=== PATIENT | female | born 1955 | race Caucasian/White ===

== ENCOUNTER 2019-04-28 09:21 | Emergency (ER) | payer OTHER, SELFPAY ==
[2019-04-28 09:28] VITALS: BP 196/93; PULSE 104; RESP 15; TEMP 37.3; O2SAT 100; BMI 43.8
--- NOTE | 2019-04-28 09:38 | ED.ALLEREA ---
HPI - Allergic Reaction General Chief complaint: Allergic Reaction Stated complaint: allergic reaction to wasp sting 30 mins ago Time Seen by Provider: 04/28/19 09:31 Source: patient Mode of arrival: ambulatory Limitations: no limitations History of Present Illness HPI narrative: 64-year-old female comes to the emergency department with complaint of allergic reaction. Patient states she was stung by a wasp this morning. She had immediately swelling of her right arm and elbow region. As well as some rashing under her armpits and groin that was red. She states she took 2 doses of Benadryl or 50 mg total. This has helped the rash although she still very red and swollen over the elbow. She did have 2 or 3 episodes of vomiting. She does not think that she is having any tightening of her airway but feels kind of gone starks from the vomit. She states maybe her airway feels labored but she does not feel short of breath. She does not feel wheezy. She has not had anymore vomiting. She is a insulin-dependent diabetic and did take her insulin this morning. She did drink a soda but has not had any more solid food. Patient has had a prior wasp sting in the past, she required Benadryl but no other interventions. Related Data Previous Rx's Medication Instructions Recorded epinephrine 0.3 mg IM Q15M PRN 1 Days #2 each 04/28/19 prednisone 20 mg PO DAILY #3 tab 04/28/19 Allergies Allergy/AdvReac Type Severity Reaction Status Date / Time erythromycin base Allergy Unknown Unverified 12/16/17 12:48 [ERYTHROMYCIN BASE] Penicillins [PENICILLINS] Allergy Unknown Unverified 12/16/17 12:48 Sulfa (Sulfonamide Allergy Unknown Unverified 12/16/17 12:48 Antibiotics) [SULFA (SULFONAMIDE ANTIBIOTICS)] Review of Systems Review of Systems ROS Unobtainable: All systems reviewed & are unremarkable except as noted in HPI and below Cardiovascular Denies chest pain, Denies edema and Denies dyspnea Respiratory Denies cough, Denies dyspnea, Denies stridor and Denies wheezing Gastrointestinal Gastrointestinal: Denies abdominal pain, Denies change in bowel habits, Denies diarrhea, Reports nausea and Reports vomiting Integumentary/Breasts Reports erythema and Reports skin swelling (hives) Allergic/Immunologic Denies wheezing [facility] Medical History (Updated 04/28/19 @ 09:42 by Kaur Enriquez DO) Diabetes (Chronic) Social History Smoking Status: Never smoker Exam Narrative Exam Narrative: GEN: Obese, well-appearing female, alert and oriented x 3, patient appears to be in no acute distress. HEENT: Atraumatic, pupils are equal round reactive to light, extraocular movements are intact, throat is clear without any exudates, erythema, tonsillar enlargement or uvular deviation HEART: Regular rate and rhythm without murmur, clicks, rubs. LUNGS:Lungs clear to auscultation, no wheezes, rales, crackles, chest moves symmetrically ABD:bowel sounds normal, soft, non-tender, no guarding, rebound, rigidity, no masses noted, no hepatosplenomegaly MSCL: Non-tender, no muscle atrophy, muscles strength 5/5 upper and lower extremities, full range of motion, normal gait NEURO:CN 2-12 intact, sensation normal SKIN: Patient has a large erythematous raised wheals that is about 6 x 8 cm over her distal arm on the extensor side. No other rashes or skin changes noted. Initial Vital Signs Initial Vital Signs: Vital Signs Temperature 99.1 F 04/28/19 09:28 Pulse Rate 104 H 04/28/19 09:28 Respiratory Rate 15 04/28/19 09:28 Blood Pressure 196/93 H 04/28/19 09:28 Pulse Oximetry 100 04/28/19 09:28 Course Orders Ordered: Discontinued Medications Methylprednisolone (Solu-Medrol 125 Mg Vial) 125 mg IV NOW ONE Stop: 04/28/19 09:39 Last Admin: 04/28/19 09:55 Dose: 125 mg Vital Signs - 8 hr 04/28/19 09:28 04/28/19 10:05 Temperature 99.1 F Pulse Rate 104 H 76 Respiratory Rate 15 13 Blood Pressure 196/93 H Blood Pressure [Right Arm] 155/78 H Pulse Oximetry 100 98 MDM - Allergic Reaction MDM Narrative Medical decision making narrative: Patient believes that she did keep the Benadryl down after vomiting. She does state that her symptoms other than the swelling her arm had improved afterwards. Plan to give a dose of Solu-Medrol but no changes consistent that would require epinephrine at this point. Patient states she actually seems to be improving. On recheck patient continued to improve. A little bit of a swelling with a little bit more distal but her arm has been hanging out at the bedside and improves improved and a more proximal area so I suspect some of this is her edema draining a little bit more distal secondary to gravity. We did lyssa the area so she can keep a close watch on it. Given prescription for prednisone but if she is well with just Benadryl she does not have to start also given a prescription for EpiPen as she could potentially have worsening reaction in the future with directions. Discharge Plan Departure Patient Disposition: Home Clinical Impression: Allergic reaction to insect sting Discharge Date/Time: 04/28/19 11:17 Interventions: ED Discharge Assessment Last Done: 04/28/19 11:15 Instructions: DI for General Allergic Reactions Activity Restrictions/Additional Instructions: Follow up in the next 2-3 days if your symptoms are not improving. Continue Benadryl 1-2 tablets every 6-8 hours as needed for symptoms. Take steroids once daily until gone. Return to the emergency department for fevers greater than 100.4, rapidly worsening redness, swelling, rashes that are spreading, new tightness of your throat, swelling of your lips mouth oropharynx, wheezing or stridor, persistent vomiting or other new or concerning symptoms. Prescriptions: New prednisone 20 mg tablet 20 mg PO DAILY Qty: 3 RF: 0 epinephrine 0.3 mg/0.3 mL auto-injector 0.3 mg IM Q15M PRN (Reason: anaphylaxis) 1 Days Qty: 2 RF: 0 Referrals: Abisai Robertson MD [Primary Care Provider] -
--- NOTE | 2019-04-28 09:50 | PC.NURSE ---
Attempts x3 for IV start. Unsuccessful
[2019-04-28] MEDS: methylPREDNISolone 125 MG/2 ML VIAL IV (09:55)
[2019-04-28 10:05] VITALS: BP 155/78; PULSE 76; RESP 13; O2SAT 98
[2019-04-28 11:15] VITALS: BP 153/82; PULSE 72; RESP 18; O2SAT 97
== END 2019-04-28 11:17 | disposition home or self-care (01) ==
PROVIDERS: Emergency Provider Emergency Medicine; PCP Family Medicine
DX: T63.461A Toxic effect of venom of wasps, accidental (unintentional), initial encounter (principal)
CPT/HCPCS: 96374; 99282; 99284; J2930

== ENCOUNTER → 2023-11-09 16:35 | Outpatient (CLI) | payer MEDICARE, OTHER, SELFPAY ==
--- NOTE | 2023-11-09 16:40 | DI.MG.S_ITS ---
BILATERAL DIGITAL SCREENING MAMMOGRAM 3D/2D WITH CAD: 11/09/2023 CLINICAL: Baseline exam. Routine screening. No prior exams were available for comparison. Both breasts are almost entirely fatty (category a/<25% glandular tissue). Current study was also evaluated with a Computer Aided Detection (CAD) system. No significant masses, calcifications, or other findings are seen in either breast. IMPRESSION: NEGATIVE There is no mammographic evidence of malignancy. A 1 year screening mammogram is recommended. Based on the Tyrer Cuzick model (a risk assessment model) the patient's lifetime risk is 5.1% and her 10 year risk is 2.5%. According to the ACR, ACS, and NCCN guidelines, an annual breast MRI exam along with mammogram is recommended if the patient's lifetime risk is 20% or greater. This exam was interpreted at Station ID: [id number]. NOTE: For mammograms, a report in lay terms will be sent to the patient. Approximately 15% of breast malignancies will not be visualized mammographically. In the management of a palpable breast mass, a negative mammogram must not discourage biopsy of a clinically suspicious lesion. Electronically Signed By: Arnold treadwell/enrique:11/10/2023 07:10:20 letter sent: Normal Exam ACR BI-RADS Category 1: Negative [id number]
== END ==
LOC: MAMMO 16:39
PROVIDERS: PCP Family Medicine; Referring Provider Family Medicine; Visit Provider Family Medicine
DX: Z12.31 Encounter for screening mammogram for malignant neoplasm of breast (principal)
CPT/HCPCS: 77063; 77067

== ENCOUNTER → 2023-12-21 12:46 | Outpatient (CLI) | payer MEDICARE, OTHER, SELFPAY ==
--- NOTE | 2023-12-21 12:47 | DI.RAD.S_ITS ---
PROCEDURE: XR DEXA AXIAL SKELETON INDICATIONS: MENOPAUSE COMPARISON: None. FINDINGS: Lumbar Spine: Bone mineral density 1.055 g/cm2, T score 0.1. Left Hip: Bone mineral density 0.990 g/cm2, T score 0.4. Left Femoral Neck: Bone mineral density 0.734 g/cm2, T score -1.0. Right Hip: Bone mineral density 0.921 g/cm2, T score -0.2. Right Femoral Neck: Bone mineral density 0.738 g/cm2, T score -1.0. Fracture Risk Calculation (when applicable): Not provided due to normal bone density. (T score greater or equal to -1.0 to: NORMAL) (T score from -1.1 to -2.4: OSTEOPENIA) (T score less than or equal to -2.5: OSTEOPOROSIS) IMPRESSION: Bone density is within normal limits. Dictated by: Jeremy Chavira M.D. on 12/21/2023 at 15:37 Approved by: Jeremy Chavira M.D. on 12/21/2023 at 15:38
== END ==
LOC: RAD 12:47
PROVIDERS: PCP Family Medicine; Referring Provider Family Medicine; Visit Provider Family Medicine
DX: Z78.0 Asymptomatic menopausal state (principal)
CPT/HCPCS: 77080

== ENCOUNTER → 2024-06-09 13:38 | Outpatient (CLI) | payer MEDICARE, OTHER, SELFPAY ==
--- NOTE | 2024-06-09 13:39 | DI.CT.S_ITS ---
PROCEDURE: CT IVP A/P W/WO INDICATIONS: 69 y/o F w/ h/o gross hematuria, please eval her upper tract TECHNIQUE: Optional 5 mm thick noncontrast images acquired from the diaphragm to the symphysis pubis. After the administration of intravenous contrast, 5 mm thick images acquired from the diaphragm to the symphysis pubis after a 10-minute delay. 2 mm thick coronal and sagittal reformats were then performed of the kidneys and ureters. For radiation dose reduction, the following was used: automated exposure control, adjustment of mA and/or kV according to patient size. COMPARISON: None. FINDINGS: Image quality: Diagnostic. Kidneys and Ureters: Both kidneys are normal in size, without hydronephrosis. 1-2 mm nonobstructing calculus at the interpolar region of the right kidney. No perinephric fat stranding. There is normal bilateral renal enhancement. Renal calyces appear normal in morphology when filled with contrast. Opacified portions of both ureters demonstrate normal caliber Bladder: Bladder wall thickness is normal. No calcified bladder stones. OTHER: Lower chest: Dense calcified nodule is seen at the right lung base consistent with a benign granuloma. Liver: No solid mass. 1.8 cm benign appearing cyst in the lateral left hepatic lobe. Gallbladder: Calcified gallstones are seen without signs of acute cholecystitis. Biliary ducts: No biliary dilation. Pancreas: No ductal dilation. Spleen: Size is within normal limits. Coarse calcifications in the spleen are most likely related to prior granulomatous disease. Adrenal Glands: 1 cm indeterminate right adrenal nodule. No left adrenal nodule. Stomach and Bowel: Normal colonic caliber, without significant wall thickening. Peritoneum: No abnormal intraperitoneal fluid. No free air. Ventral Wall: No hernia. Abdominal Nodes: No retroperitoneal or mesenteric adenopathy by size criteria. Vessels: Aorta and inferior vena cava are normal in size. PELVIS: Pelvic Organs: Unremarkable. Pelvic Nodes: No enlarged lymph nodes. Miscellaneous: No inguinal hernias are seen. Bones: No aggressive osseous abnormality. Degenerative changes are seen in the pubic symphysis, hips, sacroiliac joints, and spine. IMPRESSION: 1. Tiny non-obstructing right renal calculus. No hydronephrosis. No suspicious urothelial lesion. 2. Indeterminate right adrenal 1 cm nodule. Recommend follow-up adrenal protocol MRI or CT in 12 months. 3. Cholelithiasis. 4. Colonic diverticulosis. Approved by: Hammad Carroll M.D. on 06/10/2024 at 11:21
== END ==
LOC: CT 13:39
PROVIDERS: PCP Family Medicine; Referring Provider Urology; Visit Provider Urology
DX: K80.20 Calculus of gallbladder without cholecystitis without obstruction (principal); K76.89 Other specified diseases of liver; R31.0 Gross hematuria; E27.9 Disorder of adrenal gland, unspecified; K57.90 Diverticulosis of intestine, part unspecified, without perforation or abscess without bleeding
CPT/HCPCS: 74178; Q9967